=== PATIENT | male | born 1975 | race Caucasian/White ===

== ENCOUNTER → 2017-11-15 14:03 | Outpatient (POV) | payer OTHER, SELFPAY ==
[2017-11-15 14:11] VITALS: BP 146/94; PULSE 92; RESP 18; O2SAT 97
--- NOTE | 2017-11-15 16:32 | HMH.PMCON ---
Assessment and Plan (1) Back pain Current visit: Yes Status: Chronic Qualifiers: Back pain location: low back pain Chronicity: chronic Back pain laterality: midline Sciatica presence: unspecified whether sciatica present Qualified Code(s): M54.5 - Low back pain; G89.29 - Other chronic pain Category: Medical Code(s): M54.9 - Dorsalgia, unspecified (2) Shoulder pain Current visit: Yes Status: Chronic Qualifiers: Chronicity: chronic Laterality: bilateral Qualified Code(s): M25.511 - Pain in right shoulder; M25.512 - Pain in left shoulder; G89.29 - Other chronic pain Category: Medical Code(s): M25.519 - Pain in unspecified shoulder (3) Knee pain Current visit: Yes Status: Chronic Qualifiers: Chronicity: chronic Laterality: bilateral Qualified Code(s): M25.561 - Pain in right knee; M25.562 - Pain in left knee; G89.29 - Other chronic pain Category: Medical Code(s): M25.569 - Pain in unspecified knee - Assessment and plan all Dx Assessment and Plan for all problems:: I believe that we should get an MRI to help discern pathology for patient. On exiting the patient asked me if we are going to give him anything for the pain. I stated that we would be willing interventions only. Patient states I was told to come to Dr. Jean-Baptiste to get pain pills like my friend . I discussed with the patient that we have since changed her policies as of March would be much more interventional and are trying to wean patient off of opioid medications. Patient ORT score is 7 he is not a narcotic candidate at this time. We have no diagnostic imaging at this point. I will follow-up with him after his MRI and discuss potential injection therapy. This note was dictated using voice recognition software and may contain errors or omissions HPI - Data of Consult Requesting Physician: Ruma Baez APRN Primary Care Provider: Brad Johnson MD - Consult Narrative Reason for consult: Back pain, generalized joint pain History of present illness: Mr. Trimble is a 42 year old male Who presents for consultation in regards to his low back, shoulder pain. Patient also has knee pain. Patient states running, sitting long periods increases pain while resting decreases his pain. 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 Patient has tried and failed massage therapy. He is also tried and failed anti-inflammatories. Patient does not have any imaging. Patient has tried tramadol with not much relief he rates his pain a 6 out of 10 today. States he has been diagnosed with rheumatoid arthritis however he has not seen an arthritis specialist. According to the primary care physician he has exhibited some drug-seeking behavior. CC: Ruma Baez APRN [facility] History I have reviewed the patient's past medical history: Yes Medical History: Reports:: Hypertension Denies:: Diabetes Mellitus Type 1, Diabetes Mellitus Type 2 Laterality Cases: Left: Arthroscopy Knee, Bilateral: Arthroscopy Shoulder - *Social History Smoking Status: Current every day smoker Tobacco Type: cigarettes # Packs/Day (cigarettes): 1 Alcohol Intake: never Occupational Status: employed Housing: house - Psychiatric History Expresses thoughts of harming self/others: None Suicide Plan Description: No Plan *Family Hx:: Unable to obtain Review of Systems - Review of Systems ROS General: no recent weight change, no fever, no sleep disturbances Respiratory: no cough, no shortness of air, no recurring pulmonary infections Cardiovascular/Peripheral Vascular: No chest pain, No palpitations, no edema, no shortness of breath. Gastrointestinal: no incontinence, normal bowel movements reported Genitourinary: no incontinence Musculoskeletal: Back pain, shoulder pain, neck pain,
--- NOTE | 2017-11-15 16:35 | P.CONS_ITS ---
Assessment and Plan (1) Back pain Current visit: Yes Status: Chronic Qualifiers: Back pain location: low back pain Chronicity: chronic Back pain laterality: midline Sciatica presence: unspecified whether sciatica present Qualified Code(s): M54.5 - Low back pain; G89.29 - Other chronic pain Category: Medical Code(s): M54.9 - Dorsalgia, unspecified (2) Shoulder pain Current visit: Yes Status: Chronic Qualifiers: Chronicity: chronic Laterality: bilateral Qualified Code(s): M25.511 - Pain in right shoulder; M25.512 - Pain in left shoulder; G89.29 - Other chronic pain Category: Medical Code(s): M25.519 - Pain in unspecified shoulder (3) Knee pain Current visit: Yes Status: Chronic Qualifiers: Chronicity: chronic Laterality: bilateral Qualified Code(s): M25.561 - Pain in right knee; M25.562 - Pain in left knee; G89.29 - Other chronic pain Category: Medical Code(s): M25.569 - Pain in unspecified knee - Assessment and plan all Dx Assessment and Plan for all problems:: I believe that we should get an MRI to help discern pathology for patient. On exiting the patient asked me if we are going to give him anything for the pain. I stated that we would be willing interventions only. Patient states I was told to come to Dr. Jean-Baptiste to get pain pills like my friend . I discussed with the patient that we have since changed her policies as of March would be much more interventional and are trying to wean patient off of opioid medications. Patient ORT score is 7 he is not a narcotic candidate at this time. We have no diagnostic imaging at this point. I will follow-up with him after his MRI and discuss potential injection therapy. This note was dictated using voice recognition software and may contain errors or omissions HPI - Data of Consult Requesting Physician: Ruma Baez APRN Primary Care Provider: Brad Johnson MD - Consult Narrative Reason for consult: Back pain, generalized joint pain History of present illness: Mr. Trimble is a 42 year old male Who presents for consultation in regards to his low back, shoulder pain. Patient also has knee pain. Patient states running, sitting long periods increases pain while resting decreases his pain. 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 Patient has tried and failed massage therapy. He is also tried and failed anti-inflammatories. Patient does not have any imaging. Patient has tried tramadol with not much relief he rates his pain a 6 out of 10 today. States he has been diagnosed with rheumatoid arthritis however he has not seen an arthritis specialist. According to the primary care physician he has exhibited some drug-seeking behavior. CC: Ruma Baez APRN [facility] History I have reviewed the patient's past medical history: Yes Medical History: Reports:: Hypertension Denies:: Diabetes Mellitus Type 1, Diabetes Mellitus Type 2 Laterality Cases: Left: Arthroscopy Knee, Bilateral: Arthroscopy Shoulder - *Social History Smoking Status: Current every day smoker Tobacco Type: cigarettes # Packs/Day (cigarettes): 1 Alcohol Intake: never Occupational Status: employed Housing: house - Psychiatric History Expresses thoughts of harming self/others: None Suicide Plan Description: No Plan *Family Hx:: Unable to obtain Review of Systems - Review of Systems ROS General: no recent weight change, no fever, no slee
== END ==
PROVIDERS: PCP Internal Medicine Adolescent Medicine; Visit Provider Clinical Nurse Specialist Family Health
DX: M54.5 Low back pain (principal); G89.29 Other chronic pain; M25.511 Pain in right shoulder; M25.512 Pain in left shoulder; M25.561 Pain in right knee; M25.562 Pain in left knee; Z81.1 Family history of alcohol abuse and dependence; F10.11 Alcohol abuse, in remission
CPT/HCPCS: 99202